=== PATIENT | male | born 1950 | race Caucasian/White ===

== ENCOUNTER 2019-09-19 22:46 | Emergency (ER) | payer MEDICARE, SELFPAY ==
--- NOTE | ~2019-09-19 | CT_ITS ---
EXAMINATION: CT brain wo con INDICATION: Sudden onset severe headache COMPARISON: None TECHNIQUE: Standard unenhanced head CT. The dose-length product (DLP) was 681.00 mGy-cm. The mA was a djusted according to patient size. Iterative reconstruction technique was employed. FINDINGS: There is no acute intraparenchymal hemorrhage. No evidence of mass lesion. No evidence of a cute infarction. There is mild periventricular and subcortical hypodensity probably related to small vessel ischemic disease. There is mild prominence of the sulci and ventricles related to cerebral atr ophy. Intracranial calcified cerebral atherosclerosis is noted. There are no extra-axial collections. There is no mass effect or midline shift. The orbits and soft tissues are unremarkable. There is mi ld mucosal thickening of the paranasal sinuses. IMPRESSION: 1. No acute intracranial abnormality. 2. Age related findings. Reviewed, dictated and finalized at location A.
[2019-09-19 22:50] VITALS: BP 169/65; PULSE 72; RESP 18; TEMP 36.8; O2SAT 98
--- NOTE | 2019-09-19 22:50 | ECG_ITS ---
Measurements Intervals [place] Rate: 67 P: 41 MD: 128 QRS: 64 QRSD: 86 T: 9 QT: 366 QTc: 387 Interpretive Statements SINUS RHYTHM WITH SINUS ARRHYTHMIA BORDERLINE ST-T WAVE ABNORMALITY- INFERIOR LEADS BASELINE ARTIFACT- I, II, III, AVR, AVL, AVF BORDERLINE ECG Electronically Signed On 09-21-2019 13:25:05 CDT by Alok Jaime D.O.
--- NOTE | 2019-09-19 22:52 | ED.HA ---
HPI - Headache General Chief Complaint: Headache Stated Complaint: MONTERO Time Seen by Provider: 09/19/19 22:50 History of Present Illness HPI Narrative: Severe posterior headache. First noted neck stiffness around 2029. This quickly spread up the back of his head and became the worst headache of his life. No numbness, weakness, aphasia. Related Data Home Medications Medication Instructions Recorded Confirmed aspirin [Aspirin Low Dose] 81 mg PO DAILY 09/19/19 Allergies Allergy/AdvReac Type Severity Reaction Status Date / Time No Known Allergies Allergy Verified 09/19/19 22:59 Review of Systems Review of Systems: All systems reviewed & are unremarkable except as noted in HPI and below Constitutional: Constitutional: Denies fever(s) and Denies weakness Eyes: Eyes: Denies change in vision Cardiovascular: Cardiovascular: Denies chest pain Respiratory: Respiratory: Denies dyspnea Gastrointestinal: Gastrointestinal: Denies nausea and Denies vomiting Musculoskeletal: Musculoskeletal: Denies back pain Neurologic: Denies dizziness, Reports headache(s) and Denies weakness [facility] Social History Social History (Updated 09/20/19 @ 03:42 by Hiro Aguirre MD) Smoking status: Never smoker Exam Const: General: healthy appearing and alert Orientation/consciousness: patient oriented x3 Other: mild distress HENMT: Other: tenderness over occiput at insertion of paraspinal muscles Eyes: Pupils: Equal, round and reactive pupils present EOM: EOMs intact bilaterally Neck: Neck: normal visual inspection and no lymphadenopathy Chest: Chest palpation & inspection: no tenderness Resp: Effort & Inspection: normal respiratory effort Auscultation: clear to auscultation bilaterally, no rales, no rhonchi and no wheezes Cardio: Jugular venous distension: no JVD Rate: regular rate Rhythm: regular rhythm Heart sounds: no murmurs GI: Inspection: non-distended GI Palp: Yes Soft to palpation and No Tenderness to palpation present (GI) Skin: General skin exam: normal color Neuro: General: patient oriented x3, moves all extremities and CN's II-XI intact bilaterally Speech: normal speech Extrem: General: no edema Psych: Appearance: well kempt Affect: normal affect Course Vital Signs Vital signs: Vital Signs Temperature 36.8 C 09/19/19 22:50 Pulse Rate 72 09/19/19 22:50 Respiratory Rate 18 09/19/19 22:50 Blood Pressure 169/65 H 09/19/19 22:50 Pulse Oximetry 98 09/19/19 22:50 Temperature 36.6 C 09/20/19 01:26 Pulse Rate 88 09/20/19 01:26 Respiratory Rate 19 09/20/19 01:26 Blood Pressure 154/68 H 09/20/19 01:26 Pulse Oximetry 100 09/20/19 01:26 MDM - Headache MDM Narrative Medical decision making narrative: Given severity and relatively sudden onset of MONTERO CT was done to rule out SAH. CT was negative. Exam suggests MONTERO is 2/2 to muscle spasm in his neck. Feeling better with valium and toradol Differential Diagnosis Differential diagnosis: Likely tension headache Medical Records Attestation: I reviewed the patient's medical records. Discharge Plan Discharge Clinical Impression: Headache Qualifiers: Headache type: tension-type Headache chronicity pattern: acute headache Intractability: not intractable Qualified Code(s): G44.209 - Tension-type headache, unspecified, not intractable Patient Disposition: Home, Self-Care Condition: Stable Instructions: Tension Headache (ED) Prescriptions: New cyclobenzaprine 10 mg tablet 10 mg PO TID PRN (Reason: muscle spasm) Qty: 10 RF: 0 No Action aspirin [Aspirin Low Dose] 81 mg Tablet,Delayed Release (Dr/Ec) 81 mg PO DAILY RF: 0 Interventions: Discharge Disposition Last Done: 09/20/19 01:26 IV Stop Time Documented Last Done: 09/20/19 01:31 Follow-up/Referrals: PHYSICIAN NOT ON STAFF,NONSTAFF [Primary Care Provider] - Discharge Date/Time: 09/20/19 01:31
[2019-09-19] MEDS: METOCLOPRAMIDE HCL INJ 10 MG/2 ML VIAL IV PUSH (23:11)
[2019-09-19] MEDS: SODIUM CHLORIDE 0.9% IV 1,000 ML 999 ML IV CONT (23:12)
[2019-09-20] MEDS: KETOROLAC 30 MG/ML VIAL (*BKC) IV PUSH (00:20)
[2019-09-20 01:26] VITALS: BP 154/68; PULSE 88; RESP 19; TEMP 36.6; TEMP 36.8; O2SAT 100
== END 2019-09-20 01:31 | disposition home or self-care (01) ==
PROVIDERS: Emergency Provider Emergency Medicine
DX: G44.209 Tension-type headache, unspecified, not intractable (principal)
CPT/HCPCS: 70450; 93005; 96361; 96374; 96375; 99284; J1885; J2765; J3360; J7030

== ENCOUNTER 2025-01-06 15:55 | Emergency (ER) | payer MEDICARE, SELFPAY ==
--- OUTSIDE RECORDS SUMMARY | 2024-03-07 02:00 | XMS_ITS ---
Author Organization [facility] Address [address] [place] [address] Care Team Providers Care Automotive General Sales Manager Name Role Phone Navid Cabrera Primary Care Provider Navid Cabrera Unavailable Unavailable REASON FOR VISIT therese protocal Encounters Encounter Location Date Provider Diagnosis [facility] [address] [place] [address] 03/07/2024 Navid Cabrera Plan Of Treatment No Information Progress Notes * Usman GRISSOM MDOB:[birth year] (74 yo M)Acc No.[id number]:03/07/2024 Patient: Shannon Usman steele Provider: Lito Cabrera MD :1950 A ge:73 Y S ex:Male Date:03/07/2024 Address:[facility] [place], [place] Subjective: * Chief Complaints: * B ruce protocal Billing Information: * Procedure Codes: * Electronic signature of Adam Cabrera on 01/06/2025 at 04:58 PM EST Sign off status: Pending * Provider: Lito Cabrera MD Date: 0 03/07/2024 Generated for Printi ng/Faxing/eTransmitting on: 1 03/08/2024 04:58 PM EST
--- OUTSIDE RECORDS SUMMARY | 2024-03-07 04:30 | XMS_ITS ---
Author Organization [facility] Address [address] [place] [address] Care Team Providers Care Data Input Clerk Name Role Phone Navid Cabrera Primary Care Provider [phone] Navid Cabrera Unavailable Unavailable REASON FOR VISIT 3 day holter Medications Medication SIG (Take, Route, Frequency, Duration) Notes Start Date End Date Status Atorvastatin Calcium 40 MG Tablet 1 tablet Orally Once a day Active Metoprolol Succinate 25 MG Capsule ER 24 Hour Sprinkle 1 capsule Orally Once a day Active Aspirin 81 MG Tablet Delayed Release 1 tablet Orally Once a day Active Meloxicam 15 MG Tablet 1 tablet Orally O nce a day Active Encounters Encounter Location Date Provider Diagnosis [facility] [address] [place] [place] [address] 03/07/2024 Navid Cabrera Plan Of Treatment No Information Progress Notes * Usman GRISSOM MDOB:[birth year] (74 yo M)Acc No.[id number]:03/07/2024 Patient: Shannon Usman steele Provider: Lito Cabrera MD :1950 A ge:73 Y S ex:Male Date:03/07/2024 Address:[facility] [place] [address] [place] Subjective: * Chief Complaints: * 3 day holter * Medications: T akingMetoprolol Succinate 25 MG Capsule ER 24 Hour Sprinkle 1 capsule Orally Once a day Atorvastatin Calcium 40 MG Tablet 1 tablet Orally Once a day Meloxicam 15 MG Tablet 1 tablet Orally Once a day Aspirin 81 MG Tablet Delayed Release 1 tablet Orally Once a day Taking Metoprolol Succinate 25 MG Capsule ER 24 Hour Sprinkle 1 capsule Orally Once a day Taking Atorvastatin Calcium 40 MG Tablet 1 tablet Orally Once a day Taking Meloxicam 15 MG Tablet 1 tablet Orally Once a day Taking Aspirin 81 MG Tablet Delayed Release 1 tablet Orally Once a day Billing Information: * Procedure Codes: * Electronic signature of Adam Cabrera on 01/06/2025 at 04:58 PM EST Sign off status: Pending * Provider: Lito Cabrera MD Date: 0 03/07/2024 Generated for Ramona kennedy/Moon/Lola on: 03/08/2024 04:58 PM EST
--- OUTSIDE RECORDS SUMMARY | 2024-04-16 04:15 | XMS_ITS ---
Author Organization [facility] Address [address] [place] [address] Care Team Providers Care Manager Rental Name Role Phone Navid Cabrera Primary Care Provider [phone] Navid Cabrera Unavailable Unavailable REASON FOR VISIT testing follow up Encounters Encounter Location Date Provider Diagnosis [facility] [address] [place] [address] 04/16/2024 Navid Cabrera Plan Of Treatment No Information Progress Notes * Usman GRISSOM MDOB:[birth year] (74 yo M)Acc No.[id number]:04/16/2024 Progress Notes Patient: Shannon Usman steele Provider: Lito Cabrera MD :1950 A ge:73 Y S ex:Male Date:04/16/2024 [facility] [place] [place] Subjective: * Chief Complaints: * T esting follow up * Electronic signature of Adam Cabrera on 01/06/2025 at 04:58 PM EST Sign off status: Pending * Provider: Lito Cabrera MD Date: 0 04/16/2024 Generated for Printi ng/Faxing/eTransmitting on: 1 03/08/2024 04:58 PM EST
--- OUTSIDE RECORDS SUMMARY | 2024-08-16 03:00 | XMS_ITS ---
Author Organization [facility] Address [address] [place] [address] Care Team Providers Care Property Manager Name Role Phone Navid Cabrera Primary Care Provider Navid Cabrera Unavailable Unavailable Encounters Encounter Location Date Provider Diagnosis [facility] [address] [place] [address] 08/16/2024 Navid Cabrera Plan Of Treatment No Information Progress Notes * Usman GRISSOM MDOB:[birth year] (74 yo M)Acc No.[id number]:08/16/2024 Progress Notes Patient: Shannon Usamn steele Provider: Lito Cabrera MD :1950 A ge:73 Y S ex:Male Date:08/16/2024 Address:[facility] [place], [id number] Billing Information: * Procedure Codes: * Electronic signature of Adam Cabrera on 01/06/2025 at 04:59 PM EST Sign off status: Pending * Provider: Lito Cabrera MD Date: 08/16/2024 Generated for Printi ng/Fagrabielg/eTransmitting on: 1 03/08/2024 04:59 PM EST
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
--- OUTSIDE RECORDS SUMMARY | 2025-01-06 15:58 | XMS_ITS | Encounter Summary ---
Author Organization [facility] Address [address] [place] [address] Care Team Providers Care Manager Car Name Role Phone Tracy Grider MD Primary Care Provider [phone] Reason for Visit * Reason Onset Date Comments General Care Update 07/19/2023 Encounter Details Date Type Department Care Team (Late st Contact Info) Description 07/19/2023 Telephone [facility] [address] [facility] [place] [address] Tracy Grider MD [address] [place] [address] General Care Update Social History Tobacco Use Types Packs/Day Years Used Date Smoking Tobacco: Former Smokeless Tobacco: Never Alcohol Use Standard Drinks/Week Comments Yes 0 (1 standard drink = 0.6 oz pur e alcohol) AUDIT-C Answer Date Recorded Q1: How often do you have a drink containing alc ohol? 2-3 times a week 01/04/2020 Q2: How many drinks containi ng alcohol do you have on a typical day when you are drinking? 1 or 2 01/04/2020 Frequency of Binge Drinking Not on file 07/2019 PHQ-2 Answer Date Recorded PHQ-2 Total Score 0 07/15/2023 Sex and Gender Information Value Date Recorded Sex Assigned at Not on file Legal Sex Male 11:57 AM MDT Gender Identity Not on file Sexual Orientation Not on file documented as of this encounter Miscellaneous Notes * Telephone Encounter - Kerry Jonatan - 07/19/2023 8:30 AM MDT Who is calling: Radhika Details: Radhika spoke with Ortho in [place]. They did not receive the referral. I refaxed it to the number Radhika gave me. . documented in this encounter Plan of Treatment Upcoming Encounters Date Type Department Care Team (Late st Contact Info) Description 08/13/2025 8:40 AM MDT Office Visit [facility] [place] [address] [facility] [place] [address] Tracy Grider [facility] [address] [facility] [place] [address] documented as of this encounter Visit Diagnoses Not on filedocumented in this encounter Care Teams Manager Car Relationship Specialty Start Date End Date Tracy Grider MD [address] [facility] [place] [address] PCP - General Internal Medicine 05/31/15 Navid Cabrera Consulting Physician Cardiology 08/10/24 documented as of this encounter
--- OUTSIDE RECORDS SUMMARY | 2025-01-06 15:59 | XMS_ITS | Clinical Summary ---
Author Organization [facility] Address [address] [place] [address] Care Team Providers Care Consulting Solution Director Name Role Phone Tracy Grider MD Primary Care Provider [phone] Allergies No known active allergies Social History Tobacco Use Types Packs/Day Years Used Date Smoking Tobacco: Never Smokeless Tobacco: Never Sex and Gender Information Value Date Recorded Sex Assigned at Not on file Legal Sex Male 4:55 PM [facility] Gender Identity Not on file Sexual Orientation Not on file Last Filed Vital Signs Vital Sign Reading Time Taken Comments Blood Pressure 138/72 01/24/2017 8:57 AM MST Pulse 63 01/18/2017 11:17 AM [facility] Temperature - - Respiratory Rate 14 01/18/2017 11:11 AM [facility] Oxygen Saturation 95% 01/18/2017 11:17 AM MST Inhaled Oxygen Concentration - - Weight 104.3 kg (230 lb) 01/24/2017 8:53 AM [facility] Height 177.8 cm (5' 10) 01/24/2017 8:53 AM [facility] Body Mass Index 33 01/24/2017 8:53 AM [facility] Plan of Treatment Health Maintenance Due Date Last Done Comments CT Colonography 1950 Colonoscopy 1950 Colorectal Cancer Screening 1950 Flexible Sigmoidoscopy 1950 Stool DNA Test (Cologuard) 1950 Stool Occult Blood Test (FIT) 1950 [employer] Durable [facility] [employer] [facility]1969 Influenza Vaccine (#1) 2024 3, 12/14/2021, 12/05/2020, Additional history exists Tdap/Td Vaccine (2 - Td or Tdap) 08/27/2026 08/28/19 17 Lipids 07/04/2028 07/05/2023 Hepatitis C Antibody Screening Completed 07/04/2018 Pneumonia Vaccine 50+ Completed 12/02/2018 , 07/04/2018, 08/27/2016 Shingles Vaccine Completed 02/12/2019, 12/07/2018 Insurance [facility] [employer] PPO/HMO [facility] [id number] Care Teams Consulting Solution Director Relationship Specialty Start Date End Date Tracy Grider MD [address] [place] [address], [place] [address] PCP - General Internal Medicine 12/21/16
--- OUTSIDE RECORDS SUMMARY | 2025-01-06 15:59 | XMS_ITS | Clinical Summary ---
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 codes documented in this report are preliminary and upon telephone maintenance mechanic review may be revised to meet current compliance requirements. Note Initiated On: 10/16/2021 10:35 AM Number of Addenda: 0 Total Procedure Duration: 0 hours 38 minutes 23 seconds Scope In: 10:46:01 AM Scope Out: 11:24:24 AM Scope Withdrawal Time: 0 hours 28 minutes 48 seconds Dameon Wright DO GI/ENDOSCOPY NOTE PROCEDURES F inal Result * AAA SCREENING (05/08/2019) Pathologist [facility] AAA Screening Normal Tracy Grider MD HEALTH MAINTENANCE Final Result * Hepatitis C Ab (07/04/2018 10:48 AM T) Hepatitis C IgG Ab Non-Reacti ve Non-React surjit 07/05/2018 2:10 AM MDT [facility] Comment:No indication of exp osure to HCV Blood Venous blood / Unknown Venipuncture / Unknown 07/04/2018 10:48 AM MDT 07/04/2018 7:56 PM MDT us Tracy Grider MD LAB BLOOD ORDERABLES Final Resul t [facility] [address] [place] [address] from Last 3 Months or Most Recently Relevant to Health Maintenance Insurance [employer] MEDICARE PPO HMO Care Teams [employer] Commerce Consultant Relationship Specialty Start Date End Date Tracy Grider MD [address] [place] [address] PCP - General Internal Medicine 05/31/15 Navid Cabrera Consulting Physician Cardiology 08/10/24
--- OUTSIDE RECORDS SUMMARY | 2025-01-06 15:59 | XMS_ITS | Patient Health Record ---
Author Organization [facility] Address [address] [place] [address] Care Team Providers Care Route Cdl Driver Name Role Phone Navid Cabrera Primary Care Provider Navid Cabrera Unavailable Unavailable Prabha Figueroa Unavailable [phone] Allergies No Known Allergies Reason For Referral Reason Holter - 14784 & [phone] no auth required Diagnosis 1 Essential (primary) hypertension (I10) Diagnosis 2 Angina pectoris, uns pecified (I20.9) Referral Organization [facility] Referring Provider First Name Navid Referring Provider Last Name Rick Referring Provider Speciality Cardiology Referred Organization [facility] Referred Provider Navid Cabrera Referred Address [address] [place],[address], Referred Provider Specialty Cardiology Referral Priority Routine Reason Echo - 833[address] no au th is required Diagnosis 1 Angina pectoris, uns pecified (I20.9) Referral Organization [facility] Referring Provider First Name Navid Referring Provider Last Name Rick Referring Provider Speciality Cardiology Referred Organization [facility] Referred Provider Navid Cabrera Referred Address [address] [place],[address],[place] Referred Provider Specialty Cardiology Referral Priority Routine Reason Carotid US No auth required Diagnosis 1 Angina pectoris, uns pecified (I20.9) Diagnosis 2 Essential (primary) hypertension (I10) Referral Organization [facility] Referring Provider First Name Navid Referring Provider Last Name Rick Referring Provider Speciality Cardiology Referred Organization [facility] Referred Provider Navid Cabrera Referred Address [address] [place],[address], Referred Provider Specialty Cardiology Procedure 1 EXTRACRANIAL STUDY ( 26141) Referral Priority Routine Medications Medication SIG (Take, Route, Frequency, Duration) Notes Start Date End Date Status Mounjaro 5 MG/0.5ML Solution Auto-injector INJECT THE CONTENTS OF ONE PEN UNDER THE SKIN WEEKLY ON THE SAME DAY EACH WEEK; Duration: 28 days Active Meloxicam 15 MG Tablet 1 tablet Orally O nce a day Active Aspirin 81 MG Tablet Delayed Release 1 tablet Orally Once a day Active Losartan Potassium 50 MG Tablet 1 tablet Orally Once a day; Duration: 90 days 03/22/2024 Active Atorvastatin Calcium 40 MG Tablet 1 tablet Orally Once a day Active Social History Tobacco Use: Social History Observation Description Date Details (start date - stop date) Former Smoker NA - NA Social History Drug/Alcohol: Social Info Question Answer Notes Caffeine Intake: 1-2 cups per day Tobacco Use: Social Info Question Answer Notes Tobacco Control (Standard) Tobacco use: Former smoker How long has it been since you last smoked? Greater than 10 years Problems Problem Type SNOMED Code ICD Code Onset Dates Problem Status W/U Status Risk Notes Problem Essential hypertension (03089678) Essential (primary) hypertension (I10) Active confirmed Problem Angina pectoris (951819336) Angina pectoris, unspecified (I20.9) Active confirmed Vital Signs Heart Rate 53 /min 03/22/2024 Temperature 97.9 degrees Fahrenheit 03/22/2024 Respiratory Rate 18 /min 03/22/2024 Oximetry 96 % 03/22/2024 Blood pressure diastolic 82 mm Hg 03/22/2024 Weight-kg 128.37 kg 03/22/2024 Blood pressure systolic 140 mm Hg 03/22/2024 Weight 283.0 lbs 03/22/2024 Encounters Encounter Location Date Provider Diagnosis [facility] [address] [place] [address] 02/10/2024 Prabha Daviss Weakness R53.1 ; Essential (primary) hypertension I10 ; Body mass index (BMI) 40.0-44.9, adult Z68.41 ; Other fatigue R53.83 ; Abnormal EKG R94.31 ; DAMIÁN (obstructive sleep apnea) G47.33 and Angina pectoris, unspecified I20.9 [facility] [address] [place] [address] 03/06/2024 Navid Cabrera Cardiac murmur, unspecified R01.1 [facility] [address] [place] [address] 03/22/2024 Navid Cabrera Essential (primary) hypertension I10 ; Hyperlipidemia, unspecified E78.5 ; Weakness R53.1 and DAMIÁN (obstructive sleep apnea) G47.33 [facility] [address] [place] [address] 05/16/2024 Navid Cabrera Carotid stenosis, bilateral I65.23 [facility] [address] [place] [address] 05/23/2024 Navid Cabrera [facility] [address] [place] [address] 02/13/2024 Prabha Figueroa [facility] [address] [place] [address] 02/28/2024 Prabha Figueroa [facility] [address] [place] [address] 03/26/2024 Navid Cabrera [facility] [address] [place] [address] 03/30/2024 Navid Cabrera [facility] [address] [place] [address] 08/06/2024 Navid Cabrera Assessments Encounter Date Diagnosis (ICD Code) Assessment Notes Treatment Notes Treatment Clinical Notes Section Notes 02/10/2024 Essential (primary) hypertension (ICD-10 - I10) 02/10/2024 Weakness (ICD-10 - R53.1) 03/06/2024 Cardiac murmur, unspecified (ICD-10 - R01.1) 03/22/2024 Hyperlipidemia, unspecified (ICD-10 - E78.5) 03/22/2024 Essential (primary) hypertension (ICD-10 - I10) 05/16/2024 Carotid stenosis, bilateral (ICD-10 - I65.23) 02/10/2024 Body mass index (BMI) 40.0-44.9, adult (ICD-10 - Z68.41) 03/22/2024 Weakness (ICD-10 - R53.1) 03/22/2024 DAMIÁN (obstructive sleep apnea) (ICD-10 - G47.33) 02/10/2024 Other fatigue (ICD-10 - R53.83) 02/10/2024 Abnormal EKG (ICD-10 - R94.31) 02/10/2024 DAMIÁN (obstructive sleep apnea) (ICD-10 - G47.33) 02/10/2024 Angina pectoris, unspecified (ICD-10 - I20.9) 02/10/2024 Other Plan:1. Keep BP log twice daily and return to office next Tuesday for review. If he needs additional blood pressure medicine and kidney functions normal then I will start him on ANGELA or ARB.2. Complete labs3. Reassurance provided to him. To further evaluate for bundle branch block and his bradycardia, we will have 3-day Holter monitor.4. Request sleep study report from [place]5. Have echocardiogram to assess LV function and valvulopathy6. Harry protocol nuclear stress test, patient is aware unable to reach target heart rate 40 if he has issues with his arthritis then we will get a Lexiscan.7. Plan to follow-up after testing to review results. Fax office visit note to Radhika Brian APRN Plan Of Treatment Pending Test Test Name Order Date Echocardiogram 02/10/2024 Hemoglobin A1c 02/10/2024 Vitamin B12 02/10/2024 Folate (Folic Acid), Serum 02/10/2024 TSH+Free T4 02/10/2024 CBC 02/10/2024 Chem-Comprehensive 02/10/2024 NUCLEAR MED : Myocardial Imaging 024 Holter Test 02/10/2024 VITAMIN D,25-OH,TOTAL,IA ([id number]) 024 LIPID PANEL (REFL) ([id number]) 02/10/2024 Insurance Providers Payer Name Payer Address Payer Phone Subscriber Number Group Number Insured Name Patient Relationship to Insured Coverage Start Date Coverage End Date A[employer] Medicare Complete [address] [address] [place] [address] [phone] [id number] Usman Grissom Self - patient is the insured Medical (General) History Medical History History ICD Code Hypertension Sleep Apnea, using CPAP Melanoma Cancer Arthritis, hips, low back Obesity, BMI 41
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
--- OUTSIDE RECORDS SUMMARY | 2025-01-06 15:59 | XMS_ITS | Encounter Summary ---
Author Organization [employer] [facility] Address [address] [place] [address] Care Team Providers Care Air Conditioning Sheet Metal Installer Name Role Phone Tracy Grider MD Primary Care Provider [phone] Encounter Details Date Type Department Care Team (Late st Contact Info) Description 04/29/2022 Telephone [employer] [facility] [place] [address] [place] [address] Tracy Grider MD [address] [place] [address] Social History Tobacco Use Types Packs/Day Years [...] Answer Date Recorded PHQ-2 Total Score 0 10/02/2021 Sex and Gender Information Value Date Recorded Sex Assigned at Not on file Legal Sex Male 11:57 AM MDT Gender Identity Not on file Sexual Orientation Not on file documented as of this encounter Miscellaneous Notes * Telephone Encounter - Tracy Grider MD - 04/29/2022 6:26 PM MST Sent to [facility] [employer]. As you did not document, I was not sure if it was the correct location. -In the future, please send prescription refill request for [place] patient's to [facility] ([facility]) rather than to any specific provider. * Telephone Encounter - Suhas Zepeda - 04/29/2022 12:13 PM MST Patient Jaciel Mary is requesting a Medication Refill of Meloxicam 15MG, Please follow up with Patient at [phone]. Thank You documented in this encounter Plan of Treatment Upcoming Encounters Date Type Department Care Team (Late st Contact Info) Description 08/13/2025 8:40 AM MDT Office Visit [facility] [place] [address] [place] [employer] [address] Tracy Grider MD [address] [place] [address] documented as of this encounter Visit Diagnoses Not on filedocumented in this encounter Care Teams Air Conditioning Sheet Metal Installer Relationship Specialty Start Date End Date Tracy Grider MD [address] [place] [employer] [address] PCP - General Internal Medicine 05/31/15 NICKY D[facility]AN Audiology 10/21/20 07/14/23 Navid Cabrera Consulting Physician Cardiology 08/10/24 documented as of this encounter
--- OUTSIDE RECORDS SUMMARY | 2025-01-06 15:59 | XMS_ITS | Patient Health Record ---
Author Organization [facility] Address [address] [place] [id number] Care Team Providers Care Treasurer Name Role Phone Wojciech Adams Unavailable [phone] Reason For Referral No Information Medications Medication SIG (Take, Route, Fr equency, Duration) Notes Start Date End Date Status Vicodin 5-500 MG 1 tablet Orally ever y 6 hours as needed for pain; Duration: 7 days 02/17/2012 Active Problems Problem Type SNOMED Code ICD Code Onset Dates Problem Status W/U Status Risk Notes Problem Basal cell carcinoma of truncal skin (954084811) Basal cell carcinoma of skin of trunk, except scrotum (173.51) Active confirmed Biopsy-proven basal cell carcinoma, nodular and sclerosing type, margins involved. The biopsy was performed in [place]. After review of the pathology report and the site, an excision to remove the canceorus cells is indicated. Plan Of Treatment No Information Insurance Providers Payer Name Payer Address Payer Phone Subscriber Number Group Number Insured Name Patient Relationship to Insured Coverage Start Date Coverage End Date [employer] Claims [address] [address] [place] [address] [phone] [id number] Jaciel Usman Self - patient is the insured Medical (General) History Medical History History ICD Code basal cell carcinoma, nodula r and sclerosing types, excised from the left posterior shoulder/left upper back on 02-17-12. Surgical History Surgery Date(Month/Year) skin biopsy on the left post erior shoulder proving nodular basal cell carcinoma, BI 01/18/2012
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
--- OUTSIDE RECORDS SUMMARY | 2025-01-06 16:20 | XMS_ITS | Continuity of Care Document ---
Author Organization [facility] Address [address] [place] [address] Phone Care Team Providers Care Camera Supervisor Name Role Phone Unavailable Unavailable Unavailable Unavailable Unavailable Unavailable Problems Unspecified Diagnosis Iza Anguiano Obstructive sleep apnea synd anne marie Kayla Jaimeer , TIMBER T[employer]ATMENT PLANT OPERATOR Dyslipidemia Kayla De LPN G47.33 DAMIÁN Kayla Jaimeer , TIMBER TREATMENT PLANT OPERATOR Electrocardiogram abnormal Kayla De LPN Medications meloxicam;meloxicam Comments:meloxicam atorvastatin calcium;atorvas tatin Comments:atorvastatin Procedures Falls risk assessment documented (RAZIA) Status:Pqiizgiyg3-[id number] skin surgeries Status:Completed Risk assessment Status:Completed Comments:Radhika Grissom- [phone] Primary Care Status:Completed Comments:Dr Grider Immunizations Lot #:[id number], On:23-May-2020 Comments:COVID-Moderna (100 MCG/0.5 ML) Lot #: [id number] On: 23-May-2020 Lot #:[id number], On:25-Apr-2020 Comments:COVID-Moderna (100 MCG/0.5 ML) Lot #: [id number] On: 25-Apr-2020 Vital Signs 03-May-2023 14:20 Uvrtwiponna69.8f Comments:Method : Temporal Pulse71/min Comments:Pattern : Regular Respiratory Rate18/min Comments: Pattern: Unlabored O2 SAT96% Inhaled oxygen izjtwixwzkgjs75% Comments:Room air BP Rnmypica442el[Hg] Comments:Pa tient Position: Sitting; Cuff Location: Left Arm; Cuff Size: Standard BP Mmfeocekc98kb[Hg] Comments:Pa tient Position: Sitting; Cuff Location: Left Arm; Cuff Size: Standard BMI36.59kg/m2 BSA2.31m2 Bbhuox20ea Kloyff816ku 26-Apr-2023 16:14 Qngnvsjgpck24.2f Comments:Method : Tympanic Pulse69/min Comments:Pattern : Regular Respiratory Rate18/min Comments: Pattern: Unlabored O2 SAT93% Inhaled oxygen nurgdgvrflsjx23% Comments:Room air BP Lqgntcjl803hh[Hg] Comments:Pa tient Position: Sitting; Cuff Location: Left Arm; Cuff Size: Standard BP Jzttocmoi87rp[Hg] Comments:Pa tient Position: Sitting; Cuff Location: Left Arm; Cuff Size: Standard BMI34.44kg/m2 BSA2.26m2 Uvaqmy55oe Caucma199qd 24-Mar-2023 09:09 Rqumglgclcy05b Comments:Method: Tympanic Pulse64/min Comments:Pattern : Regular Respiratory Rate18/min Comments: Pattern: Unlabored O2 SAT95% Inhaled oxygen mlbtqllfxomdl09% Comments:Room air BP Giylnzss943yj[Hg] Comments:Pa tient Position: Sitting; Cuff Location: Left Arm; Cuff Size: Standard BP Srolipeac43qx[Hg] Comments:Pa tient Position: Sitting; Cuff Location: Left Arm; Cuff Size: Standard BMI34.44kg/m2 BSA2.26m2 Fofdqm09iu Qldskh686hb 14-Mar-2023 23:53 Pulse60/min Comments:Pattern : Regular O2 SAT96% Inhaled oxygen jpsryemazilpg54% Comments:Room air BP Ucxvdlem788ea[Hg] Comments:Pa tient Position: Sitting; Cuff Location: Left Arm; Cuff Size: Standard BP Sdfcafvle91tz[Hg] Comments:Pa tient Position: Sitting; Cuff Location: Left Arm; Cuff Size: Standard BMI34.44kg/m2 BSA2.26m2 Dmrvdt63hn Wwojqy141ck 27-Jan-2023 13:34 Akbcwmisfih65.4f Pulse64/min Comments:Pattern : Regular Respiratory Rate16/min Comments: Pattern: Unlabored O2 SAT96% Inhaled oxygen ehqdofbajjuan86% Comments:Room air BP Ylpqzeas8148jf[Hg] Comments:P atient Position: Sitting; Cuff Location: Left Arm; Cuff Size: Standard BP Saggvazam75de[Hg] Comments:Pa tient Position: Sitting; Cuff Location: Left Arm; Cuff Size: Standard BMI34.44kg/m2 BSA2.26m2 Dklvkh65xd Uirast848sx
--- OUTSIDE RECORDS SUMMARY | 2025-01-06 16:20 | XMS_ITS | Encounter Summary ---
Author Organization [facility] Address [address] [place] [address] Care Team Providers Care Metal Roaster Name Role Phone Tracy Grider MD Primary Care Provider [phone] Reason for Visit * Reason Onset Date Comments General Care Update 07/19/2023 Encounter Details Date Type Department Care Team (Late st Contact Info) Description 07/19/2023 Telephone [facility] [place] [address] [facility] [place] [address] Tracy Grider MD [address] [place] [address] General Care Update Social History Tobacco Use [...] Radhika Details: Radhika spoke with Ortho in [place]. They did not receive the referral. I refaxed it to the number Radhika gave me. . documented in this encounter Plan of Treatment Upcoming Encounters Date Type Department Care Team (Late st Contact Info) Description 08/13/2025 8:40 AM MDT [facility] [place] [address] [facility] [place] [address] Tracy Grider MD [address] [facility] [place] [address] documented as of this encounter Visit Diagnoses Not on filedocumented in this encounter Care Teams Metal Roaster Relationship Specialty Start Date End Date Tracy Grider MD [address] [facility] [place] [address] PCP - General Internal Medicine 05/31/15 Navid Cabrera Consulting Physician Cardiology 08/10/24 documented as of this encounter
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
--- OUTSIDE RECORDS SUMMARY | 2025-01-06 16:21 | XMS_ITS | Encounter Summary ---
Author Organization [employer] [facility] Address [address] [place] [address] Care Team Providers Care Consulting Sme Name Role Phone Tracy Grider MD Primary Care Provider [phone] Encounter Details Date Type Department Care Team (Late st Contact Info) Description 04/29/2022 Telephone [facility] [place] [address] [place] [address] Tracy Grider MD [address] [place] [address] Social History Tobacco Use Types Packs/Day Years [...] - 04/29/2022 6:26 PM MST Sent to [place] [facility]. As you did not document, I was not sure if it was the correct location. -In the future, please send prescription refill request for [place] patient's to [facility] ([facility]) rather than to any specific provider. * Telephone Encounter - Suhas Zepead - 04/29/2022 12:13 PM MST Patient Jaciel Mary is requesting a Medication Refill of Meloxicam 15MG, Please follow up with Patient at [phone]. Thank You documented in this encounter Plan of Treatment Upcoming Encounters Date Type Department Care Team (Late st Contact Info) Description 08/13/2025 8:40 AM MDT Office Visit [facility] [place] [address] [place] [address] Tracy Grider MD [address] [place] [address] documented as of this encounter Visit Diagnoses Not on filedocumented in this encounter Care Teams Consulting Sme Relationship Specialty Start Date End Date Tracy Grider MD [address] [place] [address] PCP - General Internal Medicine 05/31/15 NICKY DURAN Audiology 10/21/20 07/14/23 Navid Cabrera Consulting Physician Cardiology 08/10/24 documented as of this encounter
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
--- OUTSIDE RECORDS SUMMARY | 2025-01-06 16:21 | XMS_ITS | Clinical Summary ---
Author Organization [employer] [facility] Address [address] [place] [address] Care Team Providers Care Supply Chain Consultant Name Role Phone Tracy Grider MD Primary Care Provider [phone] Allergies No known active allergies Social History Tobacco Use Types Packs/Day Years Used Date Smoking Tobacco: Never Smokeless Tobacco: Never Sex and Gender Information Value Date Recorded Sex Assigned at Not on file Legal Sex Male 4:55 PM [facility] Gender Identity Not on file Sexual Orientation Not on file Last Filed Vital Signs Vital Sign Reading Time Taken Comments Blood Pressure 138/72 01/24/2017 8:57 AM MST Pulse 63 01/18/2017 11:17 AM [facility] Temperature - - Respiratory Rate 14 01/18/2017 11:11 AM [facility] Oxygen Saturation 95% 01/18/2017 11:17 AM MST Inhaled Oxygen Concentration - - Weight 104.3 kg (230 lb) 01/24/2017 8:53 AM [facility] Height 177.8 cm (5' 10) 01/24/2017 8:53 AM [facility] Body Mass Index 33 01/24/2017 8:53 AM [facility] Plan of Treatment Health Maintenance Due Date Last Done Comments CT Colonography 1950 Colonoscopy 1950 Colorectal Cancer Screening 1950 Flexible Sigmoidoscopy 1950 Stool DNA Test (Cologuard) 1950 Stool Occult Blood Test (FIT) 1950 [employer] Durable Power of [employer] [facility] 08/27/1969 Influenza Vaccine (#1) 2024 3, 12/14/2021, 12/05/2020, Additional history exists Tdap/Td Vaccine (2 - Td or Tdap) 08/27/2026 08/28/19 17 Lipids 07/04/2028 07/05/2023 Hepatitis C Antibody Screening Completed 07/04/2018 Pneumonia Vaccine 50+ Completed 12/02/2018 , 07/04/2018, 08/27/2016 Shingles Vaccine Completed 02/12/2019, 12/07/2018 Insurance [facility] [employer] PPO/HMO [facility] [id number] Care Teams Supply Chain Consultant Relationship Specialty Start Date End Date Tracy Grider MD [address] [place] [address], [place] [address] PCP - General Internal Medicine 12/21/16
[2025-01-06] MEDS: ONDANSETRON INJ 4 MG/2 ML VIAL IV PUSH (16:30)
[2025-01-06] MEDS: HYDROmorphone HCL INJ (*CRX) 1 MG/ML SYR 0.5 MG IV PUSH (16:30)
[2025-01-06 16:49] LABS: Hematocrit 36.4 % (42.0-52.0); Hemoglobin 12.1 g/dL (14.0-18.0); Immature Granulocyte Percent A 0.4 % (0-0.5); Lymphocytes Absolute Auto 1.95 K/mm3 (0.9-3.2); Mean Corpuscular HGB Conc 33.2 g/dl (32-36); Mean Corpuscular Hemoglobin 31.8 pg (26-34); Mean Corpuscular Volume 95.5 fl (80-100); Nucleated Red Blood Cells Absolute Auto 0.000 K/mm3 (0.0-0.012); Nucleated Red Blood Cells Perc 0.0 % (0.0-0.2); Platelet Count Result 243 k/mm3 (150-375); Red Blood Count 3.81 M/mm3 (4.6-6.20); White Blood Count 11.2 K/mm3 (4.5-10.0)
[2025-01-06 16:59] LABS: Alanine Aminotransferase 24 U/L (6-50); Albumin Level 4.0 g/dL (3.5-5.1); Alkaline Phosphatase 100 U/L (38-126); Anion Gap 9 mmol/L (4-12); Aspartate Amino Transferase 28 U/L (17-59); Bilirubin,Total 0.6 mg/dL (0.2-1.3); Blood Urea Nitrogen 20 mg/dL (9-20); Calcium 8.6 mg/dL (8.4-10.2); Carbon Dioxide 25 mmol/L (22-30); Chloride 103 mmol/L (98-107); Estimated Glomerular Filt Rate > 60; Glucose 189 mg/dL (65-110); Potassium 4.1 mmol/L (3.4-5.0); Sodium 137 mmol/L (137-145); Total Protein 6.8 g/dL (6.3-8.2)
[2025-01-06 19:04] VITALS: BP 146/79; PULSE 80; RESP 20; O2SAT 100
== END 2025-01-06 19:05 | disposition home or self-care (01) ==
PROVIDERS: Emergency Provider Emergency Medicine
DX: S30.0XXA Contusion of lower back and pelvis, initial encounter (principal); Z79.82 Long term (current) use of aspirin; W17.89XA Other fall from one level to another, initial encounter
CPT/HCPCS: 36415; 72132; 74177; 80053; 85025; 96374; 96375; 99284; J1171; J2405; Q9967